=== PATIENT | male | born 2000 | race Caucasian/White ===

== ENCOUNTER 2022-11-06 18:38 | Emergency (ER) | payer OTHER, SELFPAY ==
[2022-11-06 18:42] VITALS: BP 136/76; PULSE 61; RESP 20; TEMP 36.6; O2SAT 100; BMI 27.4
--- NOTE | 2022-11-06 19:03 | XR_ITS ---
The [address] [address] Patient Name: BASHIR PRATER MRN: [id number] date: 2000 Sex: M Assigned Patient Location: ER Current Patient Location: ED.MAIN Accession/Order Number: [id number] Exam Date: 11/06/2022 19:37 Report Date: 11/06/2022 20:09 At the request of: ULYSSES KRUSE Procedure: XR foot LT min 3V EXAM: XR tibia fibula LT 2V, XR foot LT min 3V HISTORY: left lower leg injury COMPARISON: None. TECHNIQUE: Frontal and lateral views of the left tibia and fibula, 3 views of the left foot are performed. FINDINGS: There is no acute fracture. The bony structures are intact. The soft tissues are unremarkable. No radiopaque foreign body. IMPRESSION: No acute bony abnormality. Electronically authenticated by: RAEANN COX Date: 11/06/2022 20:09
--- NOTE | 2022-11-06 19:03 | XR_ITS ---
The [address] [address] Patient Name: BASHIR PRATER MRN: [id number] date: 2000 Sex: M Assigned Patient Location: ER Current Patient Location: ED.MAIN Accession/Order Number: [id number] Exam Date: 11/06/2022 19:37 Report Date: 11/06/2022 20:09 At the request of: ULYSSES KRUSE Procedure: XR tibia fibula LT 2V EXAM: XR tibia fibula LT 2V, XR foot LT min 3V HISTORY: left lower leg injury COMPARISON: None. TECHNIQUE: Frontal and lateral views of the left tibia and fibula, 3 views of the left foot are performed. FINDINGS: There is no acute fracture. The bony structures are intact. The soft tissues are unremarkable. No radiopaque foreign body. IMPRESSION: No acute bony abnormality. Electronically authenticated by: RAEANN COX Date: 11/06/2022 20:09
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
[2022-11-06] MEDS: CEPHALEXIN 500 MG CAPSULE PO (19:48)
[2022-11-06] MEDS: LIDOCAINE HCL 1%-EPINEPHRINE 1:100,000 20 ML MDV (19:49)
[2022-11-06] MEDS: BACITRACIN 0.9 GM PACKET 1 PACKET TOPICAL (19:49)
== END 2022-11-06 20:14 | disposition home or self-care (01) ==
PROVIDERS: Emergency Provider Emergency Medicine
DX: S70.312A Abrasion, left thigh, initial encounter (principal); S80.12XA Contusion of left lower leg, initial encounter; S91.312A Laceration without foreign body, left foot, initial encounter; V91.83XA Other injury due to other accident to other powered watercraft, initial encounter; Y93.19 Activity, other involving water and watercraft
CPT/HCPCS: 12001; 73590; 73630; 99284